=== PATIENT | female | born 1940 | race Caucasian/White ===

== ENCOUNTER 2017-03-19 04:26 | Emergency (ER) | payer MEDICARE, BC ==
--- NOTE | 2017-03-23 19:10 | ER ---
ADMIT: 03/19/2017 RM/LOC: ER [facility] MR#: [id number] [facility] [id number] [place], [place] [id number] NATHAN RANKIN [address] [place] [address] Emergency Room Report SEX: F AGE: 76 : 1940 DATE: 03/19/2017 The patient is a 76-year-old female with history of intermittent sciatica, right leg. States that she awoke approximately 2 hours prior with aggravated right sciatica going to her right groin. Denies any injury, urgency, or weakness. Exam remarkable for nontoxic, afebrile, acutely uncomfortable female. Received Toradol, Dilaudid, Reglan with marked improvement of pain. Road tested well. Home with hydrocodone 5/325 mg as needed, #20 plus #6. Follow up with Dr. Sanchez as needed. Efraín Vigil MD/ melissa JOB #: [id number] CC: Efraín Vigil MD, Attending Physician Randal Sanchez MD, Family Physician
== END 2017-03-19 05:45 | disposition home or self-care (01) ==
LOC: ER 04:26
DX: M54.31 Sciatica, right side (principal); I11.0 Hypertensive heart disease with heart failure; I50.9 Heart failure, unspecified; E03.9 Hypothyroidism, unspecified; J44.9 Chronic obstructive pulmonary disease, unspecified; Z90.710 Acquired absence of both cervix and uterus; Z79.899 Other long term (current) drug therapy; Z79.82 Long term (current) use of aspirin